=== PATIENT | male | born 1940 | race Caucasian/White ===

== ENCOUNTER 2017-04-27 09:58 | Emergency (ER) | payer BC, MEDICARE ==
[~2017-04-27] VITALS: Ht 180.3 cm; Wt 105.0 kg
[2017-04-27 10:00] VITALS: BP 207/100; PULSE 64; RESP 20; TEMP 97.6; O2SAT 97
[2017-04-27 10:15] VITALS: BP 166/82; PULSE 60
[2017-04-27] MEDS ORDERED: ATOR40TA16 PO (10:30)
[2017-04-27] MEDS ORDERED: METO-426 PO (10:30)
[2017-04-27] MEDS ORDERED: METF500T PO (10:31)
[2017-04-27 10:32] VITALS: BP 178/105; PULSE 64; RESP 16
[2017-04-27] MEDS ORDERED: SODIUM CHLORIDE 0.9% FLUSH 10 ML FLUSH IVF PRN (11:00)
[2017-04-27] MEDS ORDERED: SODIUM CHLORID 0.9% 500 ML INJ 500 ML IV ONE (11:00)
[2017-04-27 11:33] LABS: AUTOMATED NEUTROPHIL # 3.3 TH/MM3 (1.8-7.7); BASOPHIL % 0.4 % (0.0-2.0); EOSINOPHIL # 0.1 TH/MM3 (0-0.4); EOSINOPHIL % 1.8 % (0.0-4.0); HEMATOCRIT 41.2 % (39.0-51.0); HEMO FLAGS DIFF FINAL; LYMPH % 24.1 % (9.0-44.0); LYMPHOCYTE # 1.2 TH/MM3 (1.0-4.8); MEAN CELL VOLUME 94.1 FL (80.0-100.0); MEAN CORPUSCULAR HEMOGLOBIN 31.4 PG (27.0-34.0); MEAN CORPUSCULAR HGB CONC 33.4 % (32.0-36.0); MONO % 9.9 % (0.0-8.0); NEUT % 63.8 % (16.0-70.0); PLATELET COUNT 130 TH/MM3 (150-450); RED BLOOD COUNT 4.38 MIL/MM3 (4.50-5.90); RED CELL DISTRIBUTION WIDTH 13.9 % (11.6-17.2); WHITE BLOOD COUNT 5.1 TH/MM3 (4.0-11.0)
--- NOTE | 2017-04-27 11:52 | RADRPT ---
EXAM DATE/TIME: 04/27/2017 11:21 [facility] COMPARISON: No previous studies available for comparison. INDICATIONS : Dizziness and nausea for 2 days. MEDICAL HISTORY : Hypertension. Hypercholesterolemia. Diabetes. SURGICAL HISTORY : CABG. ENCOUNTER: Initial ACUITY: 2 days PAIN SCORE: 0/10 LOCATION: Bilateral chest FINDINGS: A single view of the chest demonstrates the lungs to be symmetrically aerated without evidence of mas s, infiltrate or effusion. The cardiomediastinal contours are unremarkable. Osseous structures are intact. CONCLUSION: No acute disease. Glenn Hays MD FACR on April 27, 2017 at 11:51 Board Certified Radiologist. This report was verified electronically.
[2017-04-27 11:53] LABS: APTT (PATIENT) 24.9 SEC (24.3-30.1); PROTHROMBIN TIME - PATIENT 10.8 SEC (9.8-11.6)
[2017-04-27 12:01] LABS: ALT (GPT) 29 U/L (12-78); ANION GAP 7 MEQ/L (5-15); AST (GOT) 19 U/L (15-37); BICARBONATE 25.8 MEQ/L (21.0-32.0); BLOOD UREA NITROGEN 15 MG/DL (7-18); CHLORIDE 108 MEQ/L (98-107); GLOMERULAR FILTRATION RATE 70 ML/MIN (>89); MAGNESIUM 2.1 MG/DL (1.5-2.5); POTASSIUM 4.1 MEQ/L (3.5-5.1); SODIUM (NA) 141 MEQ/L (136-145)
[2017-04-27 12:05] LABS: ALKALINE PHOSPHATASE 101 U/L (45-117); TOTAL BILIRUBIN ADULT 0.6 MG/DL (0.2-1.0)
[2017-04-27 12:06] LABS: CREATINE KINASE 76 U/L (39-308)
--- NOTE | 2017-04-27 12:26 | RADRPT ---
EXAM DATE/TIME: 04/27/2017 11:29 [facility] COMPARISON: No previous studies available for comparison. INDICATIONS : Right leg edema, leg stasis post long car ride. MEDICAL HISTORY : Hypercholesterolemia. Hypertension. Diabetes. SURGICAL HISTORY : Cataract surgery. CABG. Shoulder surgery. Hip replacement. ENCOUNTER: Initial ACUITY: 1 day PAIN SCORE: 0/10 LOCATION: Bilateral legs. TECHNIQUE: Venous ultrasound of the left and right leg was performed from the inguinal ligament to the proximal calf. Real-time, color Doppler and spectral tracing, compression and augmentation techniques were us ed. FINDINGS: RIGHT LEG: There is normal compressibility of the deep venous system from the inguinal region to the proximal ca lf. No echogenic clot is seen in the lumen of the common femoral, femoral, popliteal, and posterior tibial veins. There is a normal response of the venous system to proximal and distal augmentation an d respiration. LEFT LEG: There is normal compressibility of the deep venous system from the inguinal region to the proximal ca lf. No echogenic clot is seen in the lumen of the common femoral, femoral, popliteal, and posterior tibial veins. There is a normal response of the venous system to proximal and distal augmentation an d respiration. CONCLUSION: Negative for deep venous thrombosis. Glenn Hays MD FACR. Glenn Hays MD FACR on April 27, 2017 at 12:23 Board Certified Radiologist. This report was verified electronically.
[2017-04-27 13:12] VITALS: BP 185/97; RESP 16
--- NOTE | 2017-04-27 13:42 | PD ---
HPI Chief Complaint: Cardiac Complaint Time Seen by Provider: 10:31 Travel History International Travel<30 days: No Contact w/Intl Traveler<30days: No Traveled to known affect area: No History of Present Illness HPI Patient is a 76-year-old male who presents to emergency room with complaints of lightheadedness and dizziness. Patient reports that he drove from [place] to [place] yesterday, reports that he has been noticing increased swelling to his left lower extremity. patient denies any chest pain at this time, no history of PE or DVT. patient reports that he was outside of his home today and was looking has sprinklers, that he bent over and stood up very quickly and felt lightheaded and dizzy.patient reports that he didn't feel right, reports that he felt nauseous and had his bring him to the emergency room right away. Patient reports that he has no chest pain or shortness of breath at this time. Patient request to be evaluated as he had history of open heart surgery in December 2015. patient reports that he is feeling fine in the emergency room, reports complete resolution of symptoms. Patient reports that he feels a little dehydrated as he only drank a Coca[employer] yesterday on his drive to [place] because of the caffeine. Reports overall decreased water consumption over the past few days PFSH Past Medical History Cardiovascular Problems: Yes (OPEN HEART SURGERY, HIGH CHOLESTEROL) High Cholesterol: Yes Diabetes: Yes Patient Takes Glucophage: No (metformin) Diminished Hearing: No Hypertension: Yes Tetanus Vaccination: < 5 Years ?: Not Past Surgical History Coronary Artery Bypass Graft: Yes (quad) Eye Surgery: Yes (cataract surgery bilateral 2002) Social History Alcohol Use: No Tobacco Use: No Substance Use: No Allergies-Medications (Allergen,Severity, Reaction): Coded Allergies: No Known Allergies (Unverified , 04/27/17) Reported Meds & Prescriptions Reported Meds & Active Scripts Active Reported Metformin (Metformin HCl) 500 Mg Tab 500 Mg PO BIDPC With meals Atorvastatin (Atorvastatin Calcium) 40 Mg Tab 40 Mg PO DAILY Metoprolol Tartrate 75 Mg Tab 75 Mg PO DAILY Review of Systems General / Constitutional: No: Fever Eyes: No: Visual changes HENT: No: Headaches Cardiovascular: No: Chest Pain or Discomfort Respiratory: No: Shortness of Breath Gastrointestinal: No: Abdominal Pain Genitourinary: No: Dysuria Musculoskeletal: No: Pain Skin: No Rash Neurologic: Positive: Weakness, Dizziness Psychiatric: No: Depression Endocrine: No: Polydipsia Hematologic/Lymphatic: No: Easy Bruising Physical Exam Narrative GENERAL: NAD SKIN: Focused skin assessment warm/dry. HEAD: Atraumatic. Normocephalic. EYES: Pupils equal and round. No scleral icterus. No injection or drainage. ENT: No nasal bleeding or discharge. Mucous membranes pink and moist. NECK: Trachea midline. No JVD. CARDIOVASCULAR: Regular rate and rhythm. No murmur appreciated. RESPIRATORY: No accessory muscle use. Clear to auscultation. Breath sounds equal bilaterally. GASTROINTESTINAL: Abdomen soft, non-tender, nondistended. Hepatic and splenic margins not palpable. MUSCULOSKELETAL: No obvious deformities. No clubbing. No cyanosis. No edema. NEUROLOGICAL: Awake and alert. No obvious cranial nerve deficits. Motor grossly within normal limits. Normal speech. PSYCHIATRIC: anxious on exam. Data Data Last Documented VS Vital Signs Date Time Temp Pulse Resp B/P Pulse Ox O2 Delivery O2 Flow Rate FiO2 04/27/17 13:12 54 98 Room Air 04/27/17 13:12 16 185/97 04/27/17 10:00 97.6 Orders Us Leg Venous Doppler Bilat (04/27/17 ) Ckmb (Isoenzyme) Profile (04/27/17 10:51) Complete Blood Count With Diff (04/27/17 10:51) Comprehensive Metabolic Panel (04/27/17 10:51) Magnesium (Mg) (04/27/17 10:51) Prothrombin Time / Inr (Pt) (04/27/17 10:51) Act Partial Throm Time (Ptt) (04/27/17 10:51) Troponin I (04/27/17 10:51) Chest, Single Ap (04/27/17 10:51) Ecg Monitoring (04/27/17 10:51) Iv Access Insert/Monitor (04/27/17 10:51) Oximetry (04/27/17 10:51) Sodium Chloride 0.9% Flush (Ns Flush) (04/27/17 11:00) Sodium Chlorid 0.9% 500 Ml Inj (Ns 500 M (04/27/17 11:00) Orthostatic Vital Signs (04/27/17 10:51) Electrocardiogram (04/27/17 ) Labs Laboratory Tests Test 04/27/17 11:15 White Blood Count 5.1 TH/MM3 Red Blood Count 4.38 MIL/MM3 Hemoglobin 13.7 GM/DL Hematocrit 41.2 % Mean Corpuscular Volume 94.1 FL Mean Corpuscular Hemoglobin 31.4 PG Mean Corpuscular Hemoglobin 33.4 % Concent Red Cell Distribution Width 13.9 % Platelet Count 130 TH/MM3 Mean Platelet Volume 8.8 FL Neutrophils (%) (Auto) 63.8 % Lymphocytes (%) (Auto) 24.1 % Monocytes (%) (Auto) 9.9 % Eosinophils (%) (Auto) 1.8 % Basophils (%) (Auto) 0.4 % Neutrophils # (Auto) 3.3 TH/MM3 Lymphocytes # (Auto) 1.2 TH/MM3 Monocytes # (Auto) 0.5 TH/MM3 Eosinophils # (Auto) 0.1 TH/MM3 Basophils # (Auto) 0.0 TH/MM3 CBC Comment DIFF FINAL Differential Comment Prothrombin Time 10.8 SEC Prothromb Time International 1.0 RATIO Ratio Activated Partial 24.9 SEC Thromboplast Time Sodium Level 141 MEQ/L Potassium Level 4.1 MEQ/L Chloride Level 108 MEQ/L Carbon Dioxide Level 25.8 MEQ/L Anion Gap 7 MEQ/L Blood Urea Nitrogen 15 MG/DL Creatinine 1.03 MG/DL Estimat Glomerular Filtration 70 ML/MIN Rate Random Glucose 210 MG/DL Calcium Level 8.9 MG/DL Magnesium Level 2.1 MG/DL Total Bilirubin 0.6 MG/DL Aspartate Amino Transf 19 U/L (AST/SGOT) Alanine Aminotransferase 29 U/L (ALT/SGPT) Alkaline Phosphatase 101 U/L Total Creatine Kinase 76 U/L Troponin I LESS THAN 0.02 NG/ML Total Protein 6.8 GM/DL Albumin 3.5 GM/DL [facility] Medical Decision Making Medical Screen Exam Complete: Yes Emergency Medical Condition: Yes Interpretation(s) EKG at 1013: sinus [place] at 58bpm, qt/qtc: 444/442, 1st degree av block Vital Signs Date Time Temp Pulse Resp B/P Pulse Ox O2 Delivery O2 Flow Rate FiO2 04/27/17 13:12 54 98 Room Air 04/27/17 13:12 59 16 185/97 04/27/17 13:12 16 04/27/17 10:32 64 16 178/105 Room Air 04/27/17 10:20 61 98 Room Air 04/27/17 10:15 60 166/82 04/27/17 10:00 97.6 64 20 207/100 97 Room Air Laboratory Tests Test 04/27/17 11:15 White Blood Count 5.1 TH/MM3 (4.0-11.0) Red Blood Count 4.38 MIL/MM3 (4.50-5.90) Hemoglobin 13.7 GM/DL (13.0-17.0) Hematocrit 41.2 % (39.0-51.0) Mean Corpuscular Volume 94.1 FL (80.0-100.0) Mean Corpuscular Hemoglobin 31.4 PG (27.0-34.0) Mean Corpuscular Hemoglobin 33.4 % Concent (32.0-36.0) Red Cell Distribution Width 13.9 % (11.6-17.2) Platelet Count 130 TH/MM3 (150-450) Mean Platelet Volume 8.8 FL (7.0-11.0) Neutrophils (%) (Auto) 63.8 % (16.0-70.0) Lymphocytes (%) (Auto) 24.1 % (9.0-44.0) Monocytes (%) (Auto) 9.9 % (0.0-8.0) Eosinophils (%) (Auto) 1.8 % (0.0-4.0) Basophils (%) (Auto) 0.4 % (0.0-2.0) Neutrophils # (Auto) 3.3 TH/MM3 (1.8-7.7) Lymphocytes # (Auto) 1.2 TH/MM3 (1.0-4.8) Monocytes # (Auto) 0.5 TH/MM3 (0-0.9) Eosinophils # (Auto) 0.1 TH/MM3 (0-0.4) Basophils # (Auto) 0.0 TH/MM3 (0-0.2) CBC Comment DIFF FINAL Differential Comment Prothrombin Time 10.8 SEC (9.8-11.6) Prothromb Time International 1.0 RATIO Ratio Activated Partial 24.9 SEC Thromboplast Time (24.3-30.1) Sodium Level 141 MEQ/L (136-145) Potassium Level 4.1 MEQ/L (3.5-5.1) Chloride Level 108 MEQ/L (98-107) Carbon Dioxide Level 25.8 MEQ/L (21.0-32.0) Anion Gap 7 MEQ/L (5-15) Blood Urea Nitrogen 15 MG/DL (7-18) Creatinine 1.03 MG/DL (0.60-1.30) Estimat Glomerular Filtration 70 ML/MIN (>89) Rate Random Glucose 210 MG/DL (74-106) Calcium Level 8.9 MG/DL (8.5-10.1) Magnesium Level 2.1 MG/DL (1.5-2.5) Total Bilirubin 0.6 MG/DL (0.2-1.0) Aspartate Amino Transf 19 U/L (15-37) (AST/SGOT) Alanine Aminotransferase 29 U/L (12-78) (ALT/SGPT) Alkaline Phosphatase 101 U/L (45-117) Total Creatine Kinase 76 U/L (39-308) Troponin I LESS THAN 0.02 NG/ML (0.02-0.05) Total Protein 6.8 GM/DL (6.4-8.2) Albumin 3.5 GM/DL (3.4-5.0) Last Impressions Chest X-Ray 04/27/17 1051 Signed Impressions: Service Date/Time: Thursday, April 27, 2017 11:21 - CONCLUSION: No acute disease. Glenn Hays MD FACR Lower Extremity Ultrasound 04/27/17 0000 Signed Impressions: Service Date/Time: Thursday, April 27, 2017 11:29 - CONCLUSION: Negative for deep venous thrombosis. Glenn Hays MD Differential Diagnosis orthostatic hypotension, acs, arrhythmia, DVT, electrolyte abnormality Narrative Course Patient is a 76-year-old male who presents to emergency room with complaints of lightheadedness and dizziness after he was working in his yard and bent over and stood up very fast. Patient reports that he feels better now and is completely asymptomatic. Patient with no chest pain or shortness of breath during these episodes. Patient was just concerned as he had a CABG in December 2015. Patient with no complaints while in the ER. Laboratory Tests Test 04/27/17 11:15 White Blood Count 5.1 TH/MM3 (4.0-11.0) Red Blood Count 4.38 MIL/MM3 (4.50-5.90) Hemoglobin 13.7 GM/DL (13.0-17.0) Hematocrit 41.2 % (39.0-51.0) Mean Corpuscular Volume 94.1 FL (80.0-100.0) Mean Corpuscular Hemoglobin 31.4 PG (27.0-34.0) Mean Corpuscular Hemoglobin 33.4 % Concent (32.0-36.0) Red Cell Distribution Width 13.9 % (11.6-17.2) Platelet Count 130 TH/MM3 (150-450) Mean Platelet Volume 8.8 FL (7.0-11.0) Neutrophils (%) (Auto) 63.8 % (16.0-70.0) Lymphocytes (%) (Auto) 24.1 % (9.0-44.0) Monocytes (%) (Auto) 9.9 % (0.0-8.0) Eosinophils (%) (Auto) 1.8 % (0.0-4.0) Basophils (%) (Auto) 0.4 % (0.0-2.0) Neutrophils # (Auto) 3.3 TH/MM3 (1.8-7.7) Lymphocytes # (Auto) 1.2 TH/MM3 (1.0-4.8) Monocytes # (Auto) 0.5 TH/MM3 (0-0.9) Eosinophils # (Auto) 0.1 TH/MM3 (0-0.4) Basophils # (Auto) 0.0 TH/MM3 (0-0.2) CBC Comment DIFF FINAL Differential Comment Prothrombin Time 10.8 SEC (9.8-11.6) Prothromb Time International 1.0 RATIO Ratio Activated Partial 24.9 SEC Thromboplast Time (24.3-30.1) Sodium Level 141 MEQ/L (136-145) Potassium Level 4.1 MEQ/L (3.5-5.1) Chloride Level 108 MEQ/L (98-107) Carbon Dioxide Level 25.8 MEQ/L (21.0-32.0) Anion Gap 7 MEQ/L (5-15) Blood Urea Nitrogen 15 MG/DL (7-18) Creatinine 1.03 MG/DL (0.60-1.30) Estimat Glomerular Filtration 70 ML/MIN (>89) Rate Random Glucose 210 MG/DL (74-106) Calcium Level 8.9 MG/DL (8.5-10.1) Magnesium Level 2.1 MG/DL (1.5-2.5) Total Bilirubin 0.6 MG/DL (0.2-1.0) Aspartate Amino Transf 19 U/L (15-37) (AST/SGOT) Alanine Aminotransferase 29 U/L (12-78) (ALT/SGPT) Alkaline Phosphatase 101 U/L (45-117) Total Creatine Kinase 76 U/L (39-308) Troponin I LESS THAN 0.02 NG/ML (0.02-0.05) Total Protein 6.8 GM/DL (6.4-8.2) Albumin 3.5 GM/DL (3.4-5.0) Last Impressions Chest X-Ray 04/27/17 1051 Signed Impressions: Service Date/Time: Thursday, April 27, 2017 11:21 - CONCLUSION: No acute disease. Glenn Hays MD FACR Lower Extremity Ultrasound 04/27/17 0000 Signed Impressions: Service Date/Time: Thursday, April 27, 2017 11:29 - CONCLUSION: Negative for deep venous thrombosis. Glenn Hays MD Patient re-evaluated, patient feeling much better. patient with no chest pain or shortness of breath, no dizziness or lightheadedness at this time. I reviewed all labs and all studies with patient in detail, will follow-up with his primary care doctor and retaining room cutter and will return to emergency room as needed. Doppler ultrasounds of the lower extremities were negative for deep vein thrombosis, understands need for repeat ultrasound 1 week if symptoms persist. Patient requesting referral to retaining room cutter in the area as his retaining room cutter is in [place]. 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
--- NOTE | 2017-04-28 12:07 | EKG ---
Date Performed: 04/27/2017 Time Performed: 10:13:34 PTAGE: 76 years EKG: SINUS BRADYCARDIA WITH FIRST DEGREE AV BLOCK LEFT VENTRICULAR HYPERTROPHY AND ST-T CHANGE P OSSIBLE AGE INDETERMINATED INFERIOR CA ABNORMAL ECG NO PREVIOUS TRACING DOCTOR: Doc [place] Interpretating Date/Time 04/28/2017 12:06:42
== END 2017-04-27 13:50 | disposition home or self-care (01) ==
LOC: NEPE 09:58
DX: I95.1 Orthostatic hypotension (principal); M79.89 Other specified soft tissue disorders; R00.1 Bradycardia, unspecified
CPT/HCPCS: 71010; 80053; 82550; 83735; 84484; 85025; 85610; 85730; 93005; 93970; 96360; 96361; 99285; J7040